=== PATIENT | male | born 1960 | race Hispanic/Latino ===

== ENCOUNTER 2018-05-17 13:19 | Emergency (ER) | payer BC ==
[~2018-05-17] VITALS: Ht 167.6 cm; Wt 70.8 kg
--- OUTSIDE RECORDS SUMMARY | 2018-05-17 13:22 | XMS REPORT | Continuity of Care Document ---
Author Author [facility] Interface Address Unknown Phone Unavailable Problems Problem Status Onset Date Classification Date Reported Comments Source BPH 10/01/2017 10/04/2017 [facility] Urinary retention 10/01/2017 10/04/2017 [facility] DIFF URINATING Active 09/30/2017 [facility] Benign essential HTN Active Problem 01/12/2018 [facility] BPH associated with nocturia Active Problem 01/12/2018 [facility] Urinary frequency Active Problem 01/12/2018 [facility] Hyperlipidemia, mixed Active Problem 01/12/2018 [facility] Vitamin B 12 deficiency Active Problem 01/12/2018 [facility] Low serum vitamin D Active Problem 01/12/2018 [facility] Medications Medication Details Route Status Patient Instructions Ordering Provider Order Date Source atorvastatin 20 MG Oral Tablet [Lipitor] 20 mg=1 tab, PO, Bedtime, # 90 tab, 1 Refill(s), Pharmacy: [id number] Active 01/09/2018 [facility] losartan 100 mg oral tablet 100 mg=1 tab, PO, Daily, # 90 tab, 1 Refill(s), Pharmacy: [facility] [id number] Active 01/09/2018 [facility] losartan 25 mg oral tablet 25 mg=1 tab, PO, Daily, # 90 tab, 1 Refill(s), Pharmacy: [facility] [id number] Active 12/25/2017 [facility] finasteride 5 mg oral tablet 5 mg=1 tab, PO, Daily, # 90 tab, 1 Refill(s), Pharmacy: [facility] [id number] Active 12/25/2017 [facility] Tamsulosin hydrochloride 0.4 MG Oral Capsule [Flomax] 0.4 mg=1 cap, PO, Daily, # 90 cap, 1 Refill(s), Pharmacy: [facility] [id number] Active 12/25/2017 [facility] Tamsulosin hydrochloride 0.4 MG Oral Capsule [Flomax] 0.4 mg=1 cap, PO, Daily, # 30 cap, 0 Refill(s), Pharmacy: [facility] [id number] Active 10/01/2017 [facility] Allergies, Adverse Reactions, Alerts Substance Category Reaction Severity Reaction type Status Date Reported Comments Source Immunizations Immunization Date Given Site Status Last Updated Comments Source Results Order Name Results Value Reference Range Date Interpretation Comments Source URINE AND STOOL UA Sq Epi None Seen 10/01/2017 [facility] URINE AND STOOL UA Urobilinogen <=1.0 mg/dL 0.1 - 1.0 10/01/2017 [facility] URINE AND STOOL UA Color Ltyellow 10/01/2017 [facility] URINE AND STOOL UA pH 6.0 5.0 - 8.0 10/01/2017 [facility] URINE AND STOOL UA Turbidity Clear (10/01/17 2:58 AM) Clear 10/01/2017 [facility] URINE AND STOOL UA Spec Grav 1.008 <=1.030 10/01/2017 [facility] URINE AND STOOL UA Blood Small *ABN* (10/01/17 2:58 AM) Negative 10/01/2017 [facility] URINE AND STOOL UA Bili Negative *NA* (10/01/17 2:58 AM) Negative 10/01/2017 [facility] URINE AND STOOL UA Ketones Negative mg/dL Negative mg/dL 10/01/2017 [facility] URINE AND STOOL UA Glucose Negative mg/dL Negative mg/dL 10/01/2017 [facility] URINE AND STOOL UA Protein Negative mg/dL Negative mg/dL 10/01/2017 [facility] URINE AND STOOL UA RBC 1 /HPF 0 - 2 10/01/2017 [facility] URINE AND STOOL UA Leuk Est Negative (10/01/17 2:58 AM) Negative 10/01/2017 [facility] URINE AND STOOL UA WBC null 0 - 5 10/01/2017 [facility] URINE AND STOOL UA Nitrite Negative (10/01/17 2:58 AM) Negative 10/01/2017 [facility] Renal Stone CT Renal Stone CT RENAL STONE PROTOCOL CT ABDOMEN AND PELVIS WITHOUT CONTRAST DATED 10/01/2017. CLINICAL INDICATION: Lower abdominal pain. Urinary obstruction. COMPARISON: None. TECHNIQUE: A renal stone protocol CT of the abdomen and pelvis was performed using helical images from the upper abdomen through the pubic symphysis without bowel or intravenous contrast. Axial and coronal reformations were performed. CT radiation dose: OMQ=177 mGy-cm FINDINGS: RENAL: There is no CT evidence of acute renal collecting system obstruction. No calcified renal or ureteral stones are detected. The kidneys are normal in size and contour. Nonspecific stranding is identified in the perinephric fat bilaterally. SOLID ORGANS: No acute CT abnormalities of the included portions of the liver, spleen, pancreas or adrenal glands are identified. The gallbladder is contracted. No significant biliary ductal dilatation is present. BOWEL: Bowel assessment is limited by the absence of bowel contrast. No small bowel dilatation is present to suggest obstruction. The appendix is visualized and is not acutely inflamed. There is no evidence of diverticular disease or inflammatory colonic wall thickening. PERITONEUM: There is no CT evidence of free intraperitoneal air or significant free intraperitoneal fluid. RETROPERITONEUM: The abdominal aorta is normal in caliber. No enlarged retroperitoneal lymph nodes are detected. PELVIS: Bladder assessment is limited by the presence of a Anna catheter. The prostate gland is enlarged (5.8 x 5.6 cm) and deforms the bladder base. LOWER CHEST: The lung bases appear clear of acute disease. IMPRESSION: 1. No CT evidence of acute renal collecting system obstruction or calcified renal collecting system stone. [id number] 10/01/2017 - - Read by: Meir Mascorro MD Dictated Date/time: 10/01/17 04:31 Electronically Signed by: Meir Mascorro MD 10/01/17 04:36 FINAL REPORT [facility] Vital Signs Vital Sign Value Date Comments Source Height 167.64 cm 01/09/2018 [facility] Systolic (mm Hg) 158 01/09/2018 [facility] Diastolic (mm Hg) 97 01/09/2018 [facility] Temperature Oral (F) 97.9 F 01/09/2018 [facility] Respitory Rate 14 01/09/2018 [facility] Heart Rate 62 01/09/2018 [facility] Weight 74.148 01/09/2018 [facility] BMI Calculated 26.38 01/09/2018 [facility] Height 167.64 cm 12/25/2017 [facility] Weight 75.227 12/25/2017 [facility] BMI Calculated 26.77 12/25/2017 [facility] Systolic (mm Hg) 155 12/25/2017 [facility] Diastolic (mm Hg) 89 12/25/2017 [facility] Temperature Oral (F) 97.6 F 12/25/2017 [facility] Respitory Rate 14 12/25/2017 [facility] Heart Rate 67 12/25/2017 [facility] Temperature Oral (F) 98.0 F 10/01/2017 [facility] Heart Rate 84 10/01/2017 [facility] Rate 20 10/01/2017 [facility] Systolic (mm Hg) 141 10/01/2017 [facility] Diastolic (mm Hg) 99 10/01/2017 [facility] Systolic (mm Hg) 138 10/01/2017 [facility] Diastolic (mm Hg) 77 10/01/2017 [facility] Respitory Rate 20 10/01/2017 [facility] Heart Rate 86 10/01/2017 [facility] Height 165.1 cm 10/01/2017 [facility] BMI Calculated 26.68 10/01/2017 [facility] Weight 72.727 10/01/2017 [facility] Respitory Rate 20 10/01/2017 [facility] Temperature Oral (F) 98.3 F 10/01/2017 [facility] Heart Rate 113 10/01/2017 [facility] Systolic (mm Hg) 158 10/01/2017 [facility] Diastolic (mm Hg) 94 10/01/2017 [facility] Encounters Location Location Details Encounter Type Encounter Number Reason For Visit Attending Provider ADM Date DC Date Status Source Outpatient [id number] JENNIFER BORREGO 04/02/2015 Active [facility] Outpatient [id number] JENNIFER BORREGO 04/30/2015 Active [facility] Outpatient [id number] JENNIFER BORREGO 02/03/2016 Active [facility] Outpatient [id number] JENNIFER BORREGO 02/17/2016 Active [facility] Outpatient [id number] JENNIFER BORREGO 05/11/2016 Active [facility] Emergency [id number] Corey Rodriguez 10/01/2017 10/01/2017 [facility] Outpatient [id number] JENNIFER BORREGO 12/25/2017 Active [facility] Outpatient [id number] Jennifer Lopez 12/25/2017 12/26/2017 [facility] Outpatient [id number] JENNIFER BORREGO 01/09/2018 Active [facility] Outpatient [id number] Jennifer Lopez 01/09/2018 01/10/2018 [facility] Outpatient [id number] JENNIFER BORREGO 04/10/2018 Active [facility] Outpatient [id number] PABLO BECKER 04/30/2018 Active [facility] Outpatient [id number] NURSE VISIT 05/17/2018 Active [facility] Outpatient [id number] PABLO PATELNATHAN 05/21/2018 Active [facility] Outpatient [id number] NURSE VISIT 05/22/2018 Active [facility] Procedures Procedure Code Date Perfomer Comments Source Hemorrhoidectomy<sup>1</sup> [id number] [facility] Procedure<sup>2</sup> [id number] hernia surgery 1997 [facility] Rotator cuff repair<sup>3</sup> [id number] 2000 [facility] Hemorrhoidectomy<sup>1</sup> [id number] 1999 [facility] Procedure<sup>2</sup> [id number] hernia surgery 1997 [facility] Rotator cuff repair<sup>3</sup> [id number] 2000 [facility]
[2018-05-17 14:45] VITALS: BP 118/94
== END 2018-05-17 14:18 | disposition home or self-care (01) ==
LOC: FSED 13:19
DX: R33.9 Retention of urine, unspecified (principal); N40.1 Benign prostatic hyperplasia with lower urinary tract symptoms
CPT/HCPCS: 51700; 99283

== ENCOUNTER 2019-08-04 04:36 | Emergency (ER) | payer SELFPAY ==
[~2019-08-04] VITALS: Ht 167.6 cm; Wt 70.8 kg
--- OUTSIDE RECORDS SUMMARY | 2019-08-04 04:39 | XMS REPORT ---
Author Author [facility] Address Unknown Phone Unavailable Care Team Providers Care Inspector Shells Name Role Phone Unavailable Unavailable Problems This patient has no known problems. Allergies, Adverse Reactions, Alerts This patient has no known allergies or adverse reactions. Medications This patient has no known medications. Encounters Start Date/Time End Date/Time Encounter Type Admission Type Attending Clinicians Care Facility Care Department Encounter ID 2018-12-06 14:45:38 Outpatient [id number] [id number]
== END 2019-08-04 08:09 | disposition home or self-care (01) ==
LOC: FSED 04:36
DX: J04.0 Acute laryngitis (principal); K21.0 Gastro-esophageal reflux disease with esophagitis
CPT/HCPCS: 99282